=== PATIENT | male | born 1980 | race African-American/Black ===

== ENCOUNTER 2020-01-30 01:20 | Emergency (ER) | payer MEDICAID ==
[~2020-01-30] VITALS: Ht 185.4 cm; Wt 106.0 kg
[2020-01-30] MEDS ORDERED: ACETAMINOPHEN 325MG TABLET PO ONE (01:45)
[2020-01-30 02:59] VITALS: BP 145/93
== END 2020-01-30 03:21 | disposition home or self-care (01) ==
LOC: ER 01:20
DX: R05 Cough (principal); M79.10 Myalgia, unspecified site; R06.02 Shortness of breath; J45.909 Unspecified asthma, uncomplicated; Z03.818 Encounter for observation for suspected exposure to other biological agents ruled out
CPT/HCPCS: 71045; 87635; 93005; 99285

== ENCOUNTER 2020-05-06 00:38 | Emergency (ER) | payer MEDICAID ==
[~2020-05-06] VITALS: Ht 185.4 cm; Wt 95.0 kg
[2020-05-06] MEDS ORDERED: IBUPROFEN 400MG TABLET PO ONE (01:15)
[2020-05-06] MEDS ORDERED: ONDANSETRON 4MG ODT PO ONE (01:15)
[2020-05-06 01:23] VITALS: BP 166/85
== END 2020-05-06 01:30 | disposition left against medical advice (07) ==
LOC: ER 00:38
DX: F41.9 Anxiety disorder, unspecified (principal); F51.9 Sleep disorder not due to a substance or known physiological condition, unspecified; I10 Essential (primary) hypertension; R51.9 Headache, unspecified; R00.0 Tachycardia, unspecified; R11.2 Nausea with vomiting, unspecified; R42 Dizziness and giddiness; F17.290 Nicotine dependence, other tobacco product, uncomplicated
CPT/HCPCS: 99283; 99406; Q0162

== ENCOUNTER 2020-05-16 02:22 | Emergency (ER) | payer MEDICAID ==
[~2020-05-16] VITALS: Ht 182.9 cm; Wt 100.0 kg
[2020-05-16] MEDS ORDERED: NALOXONE HCL 0.4 MG/ML 1ML VIAL IV PRN (02:45)
[2020-05-16 03:13] LABS: HEMATOCRIT. 42.9 % (42.0-52.0); HEMOGLOBIN. 14.3 g/dL (14.0-18.0); MEAN CORPUSCULAR HEMOGLOBIN 27.8 pg (28.0-32.0); MEAN CORPUSCULAR VOLUME 83.6 fL (80.0-94.0); PLATELET 263 x1000/uL (130-400); RED BLOOD CELL COUNT 5.13 mill/uL (4.7-6.1); RED CELL DISTRIBUTION WIDTH 13.8 % (11.6-14.6)
[2020-05-16 03:20] LABS: CHLORIDE 101 mEq/L (98-107)
[2020-05-16 03:24] LABS: ETHANOL BLOOD < 10 mg/dL
[2020-05-16 03:46] LABS: CLARITY URINE CLEAR (CLEAR); COLOR URINE YELLOW (YELLOW); KETONES URINE TRACE (NEGATIVE); LEUKOCYTE ESTERASE URINE NEGATIVE (NEGATIVE); NITRITE URINE NEGATIVE (NEGATIVE); OCCULT BLOOD URINE NEGATIVE (NEGATIVE); PROTEIN URINE 2+ (NEGATIVE); SPECIFIC GRAVITY URINE 1.028 (1.005-1.030); UROBILINOGEN URINE 0.2 E.U./dL (0.2-1.0)
[2020-05-16 04:00] LABS: *AMPHETAMINES SCREEN URINE PRESUMTIVE POSITIVE (NEGATIVE); *COCAINE SCREEN URINE NEGATIVE (NEGATIVE); METHADONE URINE SCREEN NEGATIVE (NEGATIVE); OPIATES URINE SCREEN NEGATIVE (NEGATIVE); PHENCYCLIDINE URINE SCREEN PRESUMTIVE POSITIVE (NEGATIVE)
[2020-05-16 04:01] LABS: *BARBITURATES SCREEN URINE NEGATIVE (NEGATIVE); *BENZODIAZEPINES SCREEN URINE NEGATIVE (NEGATIVE); CANNABINOID URINE SCREEN NEGATIVE (NEGATIVE)
[2020-05-16 04:32] LABS: PLATELET ESTIMATE NORMAL
[2020-05-16] MEDS ORDERED: SODIUM BICARBONATE 8.4% 1 MEQ/ML 50ML SYR IV SCH (04:45)
[2020-05-16] MEDS ORDERED: SODIUM CHLORIDE 0.9% 1,000 ML IV ONE (04:45)
[2020-05-16] MEDS ORDERED: CALCIUM GLUCONATE 100MG/ML 10ML VIAL IV SCH (05:00)
[2020-05-16 05:09] LABS: HEMATOCRIT 42.4 % (42.0-52.0); HEMOGLOBIN 14.2 g/dL (14.0-18.0); MEAN CORPUSCULAR HEMOGLOBIN 27.8 pg (28.0-32.0); PLATELET 250 x1000/uL (130-400); RED CELL DISTRIBUTION WIDTH 13.9 % (11.6-14.6)
[2020-05-16 07:00] VITALS: BP 135/86
== END 2020-05-16 07:15 | disposition home or self-care (01) ==
LOC: ER 02:22
DX: T50.991A Poisoning by other drugs, medicaments and biological substances, accidental (unintentional), initial encounter (principal); F19.10 Other psychoactive substance abuse, uncomplicated; Y92.9 Unspecified place or not applicable; D72.829 Elevated white blood cell count, unspecified; E87.5 Hyperkalemia; I10 Essential (primary) hypertension
CPT/HCPCS: 36415; 80053; 80305; 80307; 80320; 80329; 81003; 84132; 85025; 85027; 93005; 96361; 96374; 96375; 99284; J0610; J3490; G0480

== ENCOUNTER 2022-03-05 16:40 | Inpatient (IN) | payer MEDICAID ==
[~2022-03-05] VITALS: Ht 180.3 cm; Wt 124.7 kg
[2022-03-05] MEDS ORDERED: ACETAMINOPHEN 325MG TABLET PO STA (17:05)
[2022-03-05] MEDS ORDERED: IPRATROPIUM BROMIDE (0.02%) 0.5MG/2.5ML NEB HHN STA (17:20)
[2022-03-05] MEDS ORDERED: ALBUTEROL (0.083%) 2.5MG/3ML NEB HHN STA (17:20)
[2022-03-05] MEDS ORDERED: METHYLPREDNISOLONE SOD SUCC 125 MG/2 ML VIAL IV STA (17:20)
[2022-03-05] MEDS ORDERED: SODIUM CHLORIDE 0.9% 1000ML BAG (SEPSIS BOLUS) IV ONE (17:30)
[2022-03-05] MEDS ORDERED: VANCOMYCIN 1G PREMIX 200 ML IV ONE (17:30)
[2022-03-05] MEDS ORDERED: PIPERACILLIN/TAZ 3.375G PREMIX 50 ML IV ONE (17:30)
[2022-03-05] MEDS ORDERED: LABETALOL HCL VIAL 20 MG/4 ML VIAL IV ONE (17:30)
[2022-03-05 17:50] LABS: BASOPHILS % 0.7 % (0.0-2.0); EOSINOPHILS % 0.3 % (0.0-5.0); HEMATOCRIT. 41.7 % (42.0-52.0); HEMOGLOBIN. 13.9 g/dL (14.0-18.0); LYMPHOCYTES % 7.6 % (20.0-50.0); MEAN CORPUSCULAR HEMOGLOBIN 26.7 pg (28.0-32.0); MEAN CORPUSCULAR VOLUME 79.8 fL (80.0-94.0); MEAN PLATELET VOLUME 9.2 fl (7.4-10.4); NEUTROPHILS % 84.4 % (40.0-76.0); PLATELET 193 x1000/uL (130-400); RED BLOOD CELL COUNT 5.23 mill/uL (4.7-6.1); RED CELL DISTRIBUTION WIDTH 14.2 % (11.6-14.6)
[2022-03-05] MEDS ORDERED: LABETALOL HCL 5MG/ML VIAL 20ML IV ONE (18:00)
[2022-03-05 18:31] LABS: CHLORIDE 94 mEq/L (98-107)
[2022-03-05 18:35] LABS: BG BASE EXCESS 0.7 mmol/L (-2.0-2.0); BG CARBOXYHEMOGLOBIN 0.9 % (0.5-1.5); BG DEOXYHEMOGLOBIN 4.8 % (0.0-5.0); BG FRACTION INSPIRED OXYGEN 30; BG METHEMOGLOBIN 0.5 % (0.0-1.5); BG OXYGEN SATURATION 95.1 % (92.0-98.5); BG OXYHEMOGLOBIN 93.8 % (94.0-97.0); BG PCO2 39.3 mmHg (35.0-45.0); BG PH 7.422 (7.350-7.450); BG PO2 74.4 mmHg (75.0-100.0); BG SAMPLE SITE RIGHT BRACHIAL; BG TOTAL HEMOGLOBIN 14.9 g/dL (12.0-18.0); BG VENT MODE NASAL CANNULA
[2022-03-05] MEDS ORDERED: ASPIRIN 325MG EC TABLET PO NR (20:15)
[2022-03-05 23:25] VITALS: BP 141/102
[2022-03-06] MEDS ORDERED: AMLODIPINE 10MG TABLET PO PRN (00:30)
[2022-03-06] MEDS ORDERED: ACETAMINOPHEN 325MG TABLET PO PRN (00:30)
[2022-03-06] MEDS: AZITHROMYCIN 500 MG in DEXT 5% WATER 250 ML IV SCH (02:09)
[2022-03-06] MEDS: CEFTRIAXONE 1,000 MG in DEXTROSE 5% WATER 50 ML IV SCH (03:29)
[2022-03-06 04:00] VITALS: BP 138/99
[2022-03-06 07:06] LABS: HEMATOCRIT. 44.9 % (42.0-52.0); HEMOGLOBIN. 14.9 g/dL (14.0-18.0); MEAN CORPUSCULAR HEMOGLOBIN 26.7 pg (28.0-32.0); MEAN CORPUSCULAR VOLUME 80.5 fL (80.0-94.0); MEAN PLATELET VOLUME 9.1 fl (7.4-10.4); PLATELET 213 x1000/uL (130-400); RED BLOOD CELL COUNT 5.57 mill/uL (4.7-6.1); RED CELL DISTRIBUTION WIDTH 14.5 % (11.6-14.6)
[2022-03-06 08:00] VITALS: BP 141/89
[2022-03-06] MEDS ORDERED: DEXTROSE 50% WATER 50ML SYRINGE IV PRN ×2 (08:15→14:30)
[2022-03-06] MEDS ORDERED: CEFTRIAXONE 1 G PREMIX 50 ML IV SCH (09:00)
[2022-03-06] MEDS: IPRATROPIUM/ALBUTEROL 0.5-3(2.5)MG/3ML NEB HHN SCH ×4 (09:01→22:01)
[2022-03-06] MEDS: ENOXAPARIN 30MG/0.3ML SYR SUBCUT SCH ×2 (09:06→21:36)
[2022-03-06] MEDS: AMLODIPINE 10MG TABLET PO SCH (09:07)
[2022-03-06] MEDS: INSULIN LISPRO 100 UNITS/ML SUBCUT SCH ×4 (09:08→21:37)
[2022-03-06 09:47] LABS: CHLORIDE 101 mEq/L (98-107)
[2022-03-06 11:02] LABS: PLATELET ESTIMATE NORMAL
[2022-03-06] MEDS: BLOOD SUGAR DIAGNOSTIC STRIP TEST SCH ×5 (12:06→21:39)
[2022-03-06 12:30] VITALS: BP 156/105
[2022-03-06] MEDS ORDERED: IPRATROPIUM/ALBUTEROL 0.5-3(2.5)MG/3ML NEB HHN PRN (13:15)
[2022-03-06 13:39] LABS: BG BASE EXCESS -1.2 mmol/L (-2.0-2.0); BG CARBOXYHEMOGLOBIN 0.5 % (0.5-1.5); BG DEOXYHEMOGLOBIN 4.7 % (0.0-5.0); BG HCO3 ACT 23.6 mmol/L (22.0-26.0); BG METHEMOGLOBIN 0.2 % (0.0-1.5); BG OXYGEN SATURATION 95.3 % (92.0-98.5); BG OXYHEMOGLOBIN 94.6 % (94.0-97.0); BG PCO2 39.9 mmHg (35.0-45.0); BG PO2 76.2 mmHg (75.0-100.0); BG SAMPLE SITE LEFT RADIAL; BG TOTAL HEMOGLOBIN 15.8 g/dL (12.0-18.0); BG VENT MODE NASAL CANNULA
[2022-03-06] MEDS ORDERED: MAGNESIUM/ALUMINUM HYDROXIDE/SIMETHICONE 30ML UDC PO PRN (14:30)
[2022-03-06] MEDS ORDERED: ONDANSETRON HCL 4MG/2ML INJ IV PRN (14:30)
[2022-03-06] MEDS ORDERED: HYDROCODONE/ACETAMINOPHEN 5/325MG TABLET PO PRN (14:30)
[2022-03-06] MEDS: METHYLPREDNISOLONE SOD SUCC 125 MG/2 ML VIAL IV SCH ×2 (14:44→21:36)
[2022-03-06] MEDS ORDERED: AMLODIPINE 5MG TABLET PO SCH (15:00)
[2022-03-06 16:00] VITALS: BP 174/109
[2022-03-06] MEDS: CLONIDINE 0.1MG TABLET PO PRN (17:39)
[2022-03-06 18:46] LABS: CLARITY URINE CLEAR (CLEAR); COLOR URINE YELLOW (YELLOW); KETONES URINE NEGATIVE (NEGATIVE); LEUKOCYTE ESTERASE URINE NEGATIVE (NEGATIVE); NITRITE URINE NEGATIVE (NEGATIVE); OCCULT BLOOD URINE NEGATIVE (NEGATIVE); PROTEIN URINE 2+ (NEGATIVE); SPECIFIC GRAVITY URINE 1.015 (1.005-1.030); UROBILINOGEN URINE 0.2 E.U./dL (0.2-1.0)
[2022-03-06 19:26] LABS: *AMPHETAMINES SCREEN URINE PRESUMTIVE POSITIVE (NEGATIVE); *BARBITURATES SCREEN URINE NEGATIVE (NEGATIVE); *BENZODIAZEPINES SCREEN URINE NEGATIVE (NEGATIVE); *COCAINE SCREEN URINE NEGATIVE (NEGATIVE); CANNABINOID URINE SCREEN NEGATIVE (NEGATIVE); METHADONE URINE SCREEN NEGATIVE (NEGATIVE); OPIATES URINE SCREEN NEGATIVE (NEGATIVE); PHENCYCLIDINE URINE SCREEN NEGATIVE (NEGATIVE)
[2022-03-06 20:00] VITALS: BP 148/85
[2022-03-06] MEDS: LOSARTAN POTASSIUM 25 MG TABLET PO SCH (21:35)
[2022-03-07] VITALS: BP 139/87
[2022-03-07] MEDS: IPRATROPIUM/ALBUTEROL 0.5-3(2.5)MG/3ML NEB HHN SCH ×7 (01:02→20:08)
[2022-03-07] MEDS: AZITHROMYCIN 500 MG in DEXT 5% WATER 250 ML IV SCH (02:28)
[2022-03-07] MEDS: CEFTRIAXONE 1,000 MG in DEXTROSE 5% WATER 50 ML IV SCH (02:28)
[2022-03-07 04:00] VITALS: BP 150/94
[2022-03-07] MEDS: BLOOD SUGAR DIAGNOSTIC STRIP TEST SCH ×6 (06:42→21:50)
[2022-03-07] MEDS: OMEPRAZOLE 20MG CAPSULE EXTENDED RELEASE PO SCH (06:45)
[2022-03-07] MEDS: METHYLPREDNISOLONE SOD SUCC 125 MG/2 ML VIAL IV SCH ×2 (06:45→15:20)
[2022-03-07 07:59] LABS: CHLORIDE 99 mEq/L (98-107)
[2022-03-07 08:16] VITALS: BP 155/92
[2022-03-07 08:27] LABS: HDL CHOLESTEROL 63 mg/dL (40-59); LDL CHOLESTEROL 143 mg/dL (5-100); PHOSPHORUS 3.2 mg/dL (2.5-4.9); T4 FREE 0.72 ng/dL (0.76-1.46)
[2022-03-07] MEDS: AMLODIPINE 10MG TABLET PO SCH (09:15)
[2022-03-07] MEDS: ENOXAPARIN 30MG/0.3ML SYR SUBCUT SCH ×2 (09:15→21:50)
[2022-03-07] MEDS: LOSARTAN POTASSIUM 25 MG TABLET PO SCH (09:15)
[2022-03-07] MEDS: INSULIN LISPRO 100 UNITS/ML SUBCUT SCH ×4 (09:17→17:19)
[2022-03-07 11:36] LABS: HEMATOCRIT. 46.4 % (42.0-52.0); HEMOGLOBIN. 15.3 g/dL (14.0-18.0); MEAN CORPUSCULAR HEMOGLOBIN 26.7 pg (28.0-32.0); MEAN CORPUSCULAR VOLUME 81.1 fL (80.0-94.0); MEAN PLATELET VOLUME 10.2 fl (7.4-10.4); PLATELET 239 x1000/uL (130-400); RED BLOOD CELL COUNT 5.72 mill/uL (4.7-6.1); RED CELL DISTRIBUTION WIDTH 14.9 % (11.6-14.6)
[2022-03-07 12:40] VITALS: BP 135/94
[2022-03-07] MEDS ORDERED: ATROPINE SULFATE 1MG/ML VIAL IV PRN (13:30)
[2022-03-07] MEDS: HYDRALAZINE HCL 50MG TABLET PO SCH ×2 (15:21→21:58)
[2022-03-07 15:53] VITALS: BP 158/99
[2022-03-07] MEDS ORDERED: NALOXONE HCL 0.4MG/ML VIAL IV PRN (16:45)
[2022-03-07 22:00] VITALS: BP 149/102
[2022-03-08] VITALS (8 sets, daily range): BP systolic 145–164; BP diastolic 57–128
[2022-03-08] MEDS: IPRATROPIUM/ALBUTEROL 0.5-3(2.5)MG/3ML NEB HHN SCH ×6 (00:16→21:24)
[2022-03-08] MEDS: CEFTRIAXONE 1,000 MG in DEXTROSE 5% WATER 50 ML IV SCH (02:27)
[2022-03-08] MEDS: AZITHROMYCIN 500 MG in DEXT 5% WATER 250 ML IV SCH (02:27)
[2022-03-08] MEDS: HYDRALAZINE HCL 50MG TABLET PO SCH ×3 (05:39→20:26)
[2022-03-08] MEDS: BLOOD SUGAR DIAGNOSTIC STRIP TEST SCH ×4 (07:33→20:15)
[2022-03-08 07:56] LABS: HEMATOCRIT. 45.7 % (42.0-52.0); MEAN CORPUSCULAR HEMOGLOBIN 26.3 pg (28.0-32.0); MEAN CORPUSCULAR VOLUME 80.1 fL (80.0-94.0); RED BLOOD CELL COUNT 5.71 mill/uL (4.7-6.1); RED CELL DISTRIBUTION WIDTH 14.7 % (11.6-14.6)
[2022-03-08] MEDS: METHYLPREDNISOLONE SOD SUCC 40 MG/ML VIAL IV SCH ×2 (08:36→17:02)
[2022-03-08] MEDS: LOSARTAN POTASSIUM 25 MG TABLET PO SCH (08:36)
[2022-03-08] MEDS: ENOXAPARIN 30MG/0.3ML SYR SUBCUT SCH ×2 (08:36→20:16)
[2022-03-08] MEDS: OMEPRAZOLE 20MG CAPSULE EXTENDED RELEASE PO SCH (08:36)
[2022-03-08] MEDS: INSULIN LISPRO 100 UNITS/ML SUBCUT SCH ×4 (08:37→21:08)
[2022-03-08 09:35] LABS: CHLORIDE 97 mEq/L (98-107)
[2022-03-08 09:47] LABS: PHOSPHORUS 3.9 mg/dL (2.5-4.9)
[2022-03-08 10:23] LABS: PLATELET ESTIMATE NORMAL
[2022-03-08 10:24] LABS: MEAN PLATELET VOLUME 9.7 fl (7.4-10.4); PLATELET 265 x1000/uL (130-400)
[2022-03-08] MEDS ORDERED: BENZONATATE 100MG CAPSULE PO PRN (13:30)
[2022-03-08] MEDS ORDERED: BENZONATATE 100MG CAPSULE PO NR (13:30)
[2022-03-08 14:57] LABS: PLATELET ESTIMATE NORMAL
[2022-03-08] MEDS: FAMOTIDINE 20MG TABLET PO SCH (20:17)
[2022-03-09] VITALS (7 sets, daily range): BP systolic 144–168; BP diastolic 87–114
[2022-03-09] MEDS: AZITHROMYCIN 500 MG in DEXT 5% WATER 250 ML IV SCH (00:18)
[2022-03-09] MEDS: CEFTRIAXONE 1,000 MG in DEXTROSE 5% WATER 50 ML IV SCH (02:13)
[2022-03-09] MEDS: IPRATROPIUM/ALBUTEROL 0.5-3(2.5)MG/3ML NEB HHN SCH ×4 (04:00→12:00)
[2022-03-09] MEDS: HYDRALAZINE HCL 50MG TABLET PO SCH ×2 (05:18→13:38)
[2022-03-09] MEDS: BLOOD SUGAR DIAGNOSTIC STRIP TEST SCH ×2 (07:30→12:36)
[2022-03-09 07:54] LABS: BASOPHILS % 0.5 % (0.0-2.0); HEMATOCRIT. 49.7 % (42.0-52.0); HEMOGLOBIN. 16.5 g/dL (14.0-18.0); LYMPHOCYTES % 16.2 % (20.0-50.0); MEAN CORPUSCULAR HEMOGLOBIN 26.6 pg (28.0-32.0); MEAN CORPUSCULAR VOLUME 80.2 fL (80.0-94.0); MONOCYTES % 7.2 % (2.0-8.0); NEUTROPHILS % 76.1 % (40.0-76.0); RED BLOOD CELL COUNT 6.19 mill/uL (4.7-6.1); RED CELL DISTRIBUTION WIDTH 14.4 % (11.6-14.6)
[2022-03-09] MEDS: INSULIN LISPRO 100 UNITS/ML SUBCUT SCH ×2 (08:08→12:37)
[2022-03-09 08:15] LABS: CHLORIDE 98 mEq/L (98-107)
[2022-03-09] MEDS ORDERED: LOSARTAN POTASSIUM 25 MG TABLET PO SCH (09:00)
[2022-03-09] MEDS: METHYLPREDNISOLONE SOD SUCC 40 MG/ML VIAL IV SCH (09:01)
[2022-03-09] MEDS: ENOXAPARIN 30MG/0.3ML SYR SUBCUT SCH (09:02)
[2022-03-09] MEDS: FAMOTIDINE 20MG TABLET PO SCH (09:02)
[2022-03-09 10:13] LABS: PLATELET 221 x1000/uL (130-400)
[2022-03-09] MEDS: CLONIDINE 0.1MG TABLET PO PRN (13:38)
[2022-03-10] MEDS ORDERED: LOSARTAN POTASSIUM 100 MG TABLET PO SCH (09:00)
== END 2022-03-09 19:58 | disposition left against medical advice (07) | DRG 720 ==
LOC: ER 16:40 → EDBEDREQSVC 17:35 → 6WST 20:18 → EDBEDREQ 20:38 → EDBEDREQTM 20:38 → ENRESERV 22:00 → 5EST 03-07 16:32
PROVIDERS: ADMIT Internal Medicine; ATTEND Internal Medicine
DX: A41.9 Sepsis, unspecified organism (principal); J96.01 Acute respiratory failure with hypoxia; G92.9 Unspecified toxic encephalopathy; I11.0 Hypertensive heart disease with heart failure; I42.9 Cardiomyopathy, unspecified; I50.9 Heart failure, unspecified; G47.10 Hypersomnia, unspecified; F17.210 Nicotine dependence, cigarettes, uncomplicated; E11.9 Type 2 diabetes mellitus without complications; R41.82 Altered mental status, unspecified; E78.5 Hyperlipidemia, unspecified; E66.9 Obesity, unspecified; F15.90 Other stimulant use, unspecified, uncomplicated; Z53.29 Procedure and treatment not carried out because of patient's decision for other reasons; Z20.822 Contact with and (suspected) exposure to COVID-19; Z91.14 Patient's other noncompliance with medication regimen; Z68.38 Body mass index [BMI] 38.0-38.9, adult; Z83.3 Family history of diabetes mellitus; J12.9 Viral pneumonia, unspecified
CPT/HCPCS: 36415; 36600; 71045; 80048; 80053; 80061; 80076; 80305; 81003; 82140; 82375; 82805; 82962; 83036; 83605; 83735; 83880; 84100; 84145; 84439; 84443; 84484; 85025; 87426; 93005; 93306; 93970; 94640; 97162; 99285; C1893; C9803; J0456; J0696; J1650; J1815; J2543; J2920; J2930; J3370; J3490; J7030; J7060

== ENCOUNTER 2022-10-18 22:27 | Emergency (ER) | payer MEDICAID, OTHER ==
[~2022-10-18] VITALS: Ht 185.4 cm; Wt 130.0 kg
[2022-10-18 22:35] VITALS: O2SAT 96
[2022-10-19 04:11] LABS: HEMATOCRIT. 42.1 % (42.0-52.0); HEMOGLOBIN. 14.2 g/dL (14.0-18.0); MEAN CORPUSCULAR VOLUME 80.2 fL (80.0-94.0); MEAN PLATELET VOLUME 8.9 fl (7.4-10.4); PLATELET 206 x1000/uL (130-400); RED BLOOD CELL COUNT 5.25 mill/uL (4.7-6.1); RED CELL DISTRIBUTION WIDTH 14.3 % (11.6-14.6)
[2022-10-19 04:47] LABS: CHLORIDE 100 mEq/L (98-107)
[2022-10-19 05:21] LABS: CLARITY URINE CLEAR (CLEAR); COLOR URINE YELLOW (YELLOW); KETONES URINE NEGATIVE (NEGATIVE); LEUKOCYTE ESTERASE URINE 2+ (NEGATIVE); NITRITE URINE NEGATIVE (NEGATIVE); OCCULT BLOOD URINE NEGATIVE (NEGATIVE); PH URINE 5.5 (4.5-8.0); PROTEIN URINE NEGATIVE (NEGATIVE); SPECIFIC GRAVITY URINE 1.016 (1.005-1.030); UROBILINOGEN URINE 0.2 E.U./dL (0.2-1.0)
[2022-10-19] MEDS ORDERED: LOSA1TAB40 MT (05:24)
[2022-10-19] MEDS ORDERED: AMLO10TA80 MT (05:24)
[2022-10-19 05:30] VITALS: BP 158/91; PULSE 97; RESP 16; TEMP 98
[2022-10-19 07:06] LABS: PLATELET ESTIMATE NORMAL
== END 2022-10-19 05:48 | disposition home or self-care (01) ==
LOC: ER 22:50
DX: I10 Essential (primary) hypertension (principal); R07.89 Other chest pain; E11.9 Type 2 diabetes mellitus without complications; E78.00 Pure hypercholesterolemia, unspecified
CPT/HCPCS: 36415; 71045; 80053; 81003; 82962; 83880; 84484; 85025; 85379; 93005; 99285

== ENCOUNTER 2023-06-12 03:20 | Emergency (ER) | payer MEDICAID, OTHER ==
[~2023-06-12] VITALS: Ht 185.4 cm; Wt 134.0 kg
[~2023-06-12 03:20] MED LIST: AMLO10TA80 MT; LOSA1TAB40 MT
[2023-06-12 03:54] VITALS: O2SAT 98
[2023-06-12 04:25] LABS: CLARITY URINE CLEAR (CLEAR); COLOR URINE YELLOW (YELLOW); GLUCOSE URINE NEGATIVE (NEGATIVE); KETONES URINE NEGATIVE (NEGATIVE); LEUKOCYTE ESTERASE URINE NEGATIVE (NEGATIVE); NITRITE URINE NEGATIVE (NEGATIVE); OCCULT BLOOD URINE NEGATIVE (NEGATIVE); PROTEIN URINE 2+ (NEGATIVE); SPECIFIC GRAVITY URINE 1.024 (1.005-1.030)
[2023-06-12 04:30] LABS: BASOPHILS % 0.7 % (0.0-2.0); EOSINOPHILS % 0.6 % (0.0-5.0); HEMATOCRIT. 42.2 % (42.0-52.0); HEMOGLOBIN. 14.1 g/dL (14.0-18.0); LYMPHOCYTES % 13.1 % (20.0-50.0); MEAN CORPUSCULAR HEMOGLOBIN 27.8 pg (28.0-32.0); MEAN CORPUSCULAR HGB CONC 33.5 g/dL (31.0-37.0); MEAN CORPUSCULAR VOLUME 83.1 fL (80.0-94.0); MEAN PLATELET VOLUME 8.7 fl (7.4-10.4); NEUTROPHILS % 79.6 % (40.0-76.0); PLATELET 221 x1000/uL (130-400); RED BLOOD CELL COUNT 5.08 mill/uL (4.7-6.1); RED CELL DISTRIBUTION WIDTH 14.6 % (11.6-14.6); WHITE BLOOD COUNT 15.2 x1000/uL (4.5-11.0)
[2023-06-12 04:44] LABS: ALANINE AMINOTRANSFERASE 34 IU/L (10-49); ALBUMIN 4.8 g/dL (3.2-4.8); ASPARTATE AMINOTRANSFERASE 42 IU/L (<34); BILIRUBIN TOTAL 0.5 mg/dL (0.1-1.0); CALCIUM 9.6 mg/dL (8.7-10.4); CARBON DIOXIDE 25 mEq/L (21-32); CHLORIDE 101 mEq/L (98-107); CREATININE 1.2 mg/dL (0.6-1.3); GLUCOSE 100 mg/dL (70-105); POTASSIUM 4.2 mEq/L (3.5-5.1); PROTEIN TOTAL 8.1 g/dL (6.0-8.3); SODIUM 134 mEq/L (136-145); UREA NITROGEN BLOOD 16 mg/dL (9-23)
[2023-06-12 04:52] LABS: TROPONIN I HIGH SENSITIVITY 57 ng/L (3.0-53)
[2023-06-12 05:10] LABS: RBC URINE 0-2 /hpf (0-2); WBC URINE 0-2 /hpf (0-2)
[2023-06-12 05:16] LABS: BACTERIA URINE NONE SEEN; SQUAMOUS EPITHELIAL CELL URINE RARE /lpf (RARE/1+)
[2023-06-12] MEDS: FUROSEMIDE 40MG/4ML VIAL IVP NR (08:45)
[2023-06-12 09:25] LABS: TROPONIN I HIGH SENSITIVITY 57 ng/L (3.0-53)
[2023-06-12] MEDS: CLONIDINE 0.1MG TABLET PO NR (10:47)
[2023-06-12] MEDS: FUROSEMIDE 40MG TABLET PO ONE (11:29)
[2023-06-12] MEDS: SODIUM CHLORIDE 0.9% IV ONE (12:10)
[2023-06-12] MEDS: CEFTRIAXONE 1GM PREMIX 50 ML IV NR (12:10)
[2023-06-12] MEDS ORDERED: AMLO10TA80 MT (14:07)
[2023-06-12] MEDS ORDERED: METF-416 MT (14:07)
[2023-06-12] MEDS ORDERED: LOSA1TAB40 MT (14:07)
[2023-06-12] MEDS ORDERED: METF-414 MT (14:07)
[2023-06-12] MEDS ORDERED: AMOX1TAB16 MT (14:23)
[2023-06-12] MEDS ORDERED: NEO/5DRO3 LEFTEYE (14:55)
[2023-06-12 16:23] VITALS: BP 168/89; PULSE 102; RESP 20; TEMP 98.2
== END 2023-06-12 16:25 | disposition home or self-care (01) ==
LOC: ER 04:08
DX: J40 Bronchitis, not specified as acute or chronic (principal); I10 Essential (primary) hypertension; I11.0 Hypertensive heart disease with heart failure; I50.9 Heart failure, unspecified; E11.9 Type 2 diabetes mellitus without complications; Z79.899 Other long term (current) drug therapy
CPT/HCPCS: 99291; 96365; 80053; 81003; 83880; 85025; 87040; 84484; 36415; 71045; 93005; J0696

== ENCOUNTER 2023-09-05 21:58 | Emergency (ER) | payer MEDICAID, OTHER ==
[~2023-09-05] VITALS: Ht 185.4 cm; Wt 134.0 kg
[~2023-09-05 21:58] MED LIST changes: +CARV25TA47 MT; +LOSA100T33 MT; +METF-416 MT
[2023-09-05 22:02] VITALS: BP 145/94; PULSE 104; RESP 19; TEMP 98.9; O2SAT 97
[2023-09-05] MEDS ORDERED: METF-416 MT (22:33)
[2023-09-05] MEDS ORDERED: LOSA100T33 MT (22:33)
[2023-09-05] MEDS ORDERED: AMLO10TA80 MT (22:33)
[2023-09-05] MEDS ORDERED: CARV25TA47 MT (22:33)
== END 2023-09-05 23:30 ==
LOC: ER 21:58
DX: I11.0 Hypertensive heart disease with heart failure (principal); E11.9 Type 2 diabetes mellitus without complications; I50.9 Heart failure, unspecified; F12.90 Cannabis use, unspecified, uncomplicated
CPT/HCPCS: 99283